=== PATIENT | male | born 1985 | race Caucasian/White ===

== ENCOUNTER 2018-11-05 16:34 | Emergency (ER) | payer MEDICAID ==
[~2018-11-05] VITALS: Ht 177.8 cm; Wt 109.1 kg
[~2018-11-05 16:34] MED LIST: BUPR150T26; CEPH-571 PO; CLIN-96 PO; CYCL10TA25; HYDR-3972; HYDR-4383 PO; IBUP-1984 PO; LORA0.5T; TADA5TAB2
[2018-11-05 16:37] VITALS: BP 150/60
[2018-11-05] MEDS ORDERED: TETanus/Pertussis (Acell)/Diphther VAC/PF (Tdap-Adult) 0.5ml syringe IM ONE (16:45)
[2018-11-05] MEDS ORDERED: HYDROcodone/acetaminophen 5mg/325mg tablet PO ONE (16:45)
[2018-11-05] MEDS ORDERED: LIDOcaine 1% w/epiNEPHrine 1:200,000 30ml vial IM ONE (16:45)
[2018-11-05] MEDS ORDERED: silver nitrate applicator stick TP ONE (16:50)
[2018-11-05] MEDS ORDERED: HYDR-3965 PO (18:04)
== END 2018-11-05 18:14 | disposition home or self-care (01) ==
LOC: ER 16:35
DX: S61.303A Unspecified open wound of left middle finger with damage to nail, initial encounter (principal); G89.29 Other chronic pain; Z98.890 Other specified postprocedural states; Z88.0 Allergy status to penicillin; Z79.899 Other long term (current) drug therapy; W26.8XXA Contact with other sharp object(s), not elsewhere classified, initial encounter; Y93.89 Activity, other specified; Y92.89 Other specified places as the place of occurrence of the external cause; Y99.8 Other external cause status
CPT/HCPCS: 64450; 73140; 90471; 90715; 99284; J3490

== ENCOUNTER 2018-11-12 00:19 | Emergency (ER) | payer MEDICAID ==
[~2018-11-12] VITALS: Ht 177.8 cm; Wt 102.2 kg
[2018-11-12 00:29] VITALS: BP 157/129
[2018-11-12] MEDS ORDERED: CLIN150C2 PO (00:34)
== END 2018-11-12 00:48 | disposition home or self-care (01) ==
LOC: ER 00:20
DX: S61.210D Laceration without foreign body of right index finger without damage to nail, subsequent encounter (principal); G89.29 Other chronic pain; Z98.890 Other specified postprocedural states; Z88.0 Allergy status to penicillin; Z79.899 Other long term (current) drug therapy; W26.8XXD Contact with other sharp object(s), not elsewhere classified, subsequent encounter
CPT/HCPCS: 99283

== ENCOUNTER 2018-12-19 19:01 | Emergency (ER) | payer MEDICAID ==
[~2018-12-19] VITALS: Ht 175.3 cm; Wt 113.6 kg
[2018-12-19 19:36] LABS: BASOPHILS % (AUTO) 0.4 % (0-1); EOSINOPHILS # (AUTO) 0.1 X10'3 (0-0.9); EOSINOPHILS % (AUTO) 1.2 % (0-6); HEMATOCRIT 46.1 % (42.0-52.0); HEMOGLOBIN 15.9 g/dl (14.0-17.9); LYMPHOCYTES # (AUTO) 2.5 X10'3 (1.1-4.8); LYMPHOCYTES % (AUTO) 22.2 % (21-51); MEAN CORPUSCULAR HEMOGLOBIN 30.7 PG (27.0-31.0); MEAN CORPUSCULAR HGB CONC 34.4 g/dL (33.0-36.5); MEAN CORPUSCULAR VOLUME 89.4 FL (78-98); MEAN PLATELET VOLUME 7.6 FL (7.4-10.4); MONOCYTES # (AUTO) 0.5 X10'3 (0-0.9); MONOCYTES % (AUTO) 4.2 % (2-12); NEUTROPHILS # (AUTO) 8.1 X10'3 (1.8-7.7); PLATELET COUNT 304 X10'3 (140-440); RED BLOOD COUNT 5.16 X10'6 (4.70-6.10); RED CELL DISTRIBUTION WIDTH 13.2 % (11.5-14.5); WHITE BLOOD COUNT 11.3 X10'3 (4.5-11.0)
[2018-12-19 19:48] LABS: ALANINE AMINOTRANSFERASE 43 U/L (12-78); ALBUMIN 4.3 G/DL (3.4-5.0); ALBUMIN/GLOBULIN RATIO 1.2 (1.1-1.5); ALKALINE PHOSPHATASE 69 IU/L (46-116); ANION GAP 11 (8-16); ASPARTATE AMINO TRANSFERASE 17 U/L (10-37); BILIRUBIN,TOTAL 0.4 MG/DL (0.1-1.0); BLOOD UREA NITROGEN 8 MG/DL (7-18); BUN/CREATININE RATIO 7.8 (5.4-32.0); CALCIUM 8.7 MG/DL (8.5-10.1); CHLORIDE 104 MMOL/L (99-107); CREATININE 1.02 MG/DL (0.60-1.10); GLUCOSE 170 MG/DL (70-104); PARTIAL THROMBOPLASTIN TIME 28 SECONDS (22-32); POTASSIUM 3.7 MMOL/L (3.5-5.1); SODIUM 139 MMOL/L (135-145); TOTAL CARBON DIOXIDE 24.5 MMOL/L (24-32); TOTAL PROTEIN 7.8 G/DL (6.4-8.2); eGFR 85 ML/MIN
[2018-12-19 19:49] LABS: ETHANOL < 0.010 GM/DL (0.0-0.010)
[2018-12-19 21:02] LABS: URINE AMPHETAMINE SCREEN NEGATIVE (Neg); URINE BARBITUATE SCREEN NEGATIVE (Neg); URINE BENZODIAZEPINES SCREEN NEGATIVE (Neg); URINE CANNABINOID SCREEN NEGATIVE (Neg); URINE COCAINE SCREEN NEGATIVE (Neg); URINE METHADONE SCREEN NEGATIVE (Neg); URINE OPIATE SCREEN POSITIVE (Neg); URINE PHENCYCLIDINE SCREEN NEGATIVE (Neg)
[2018-12-19 21:48] VITALS: BP 134/99
[2018-12-19 22:13] LABS: CLARITY,URINE CLOUDY (Clear); COLOR,URINE YELLOW (Yellow); GLUCOSE, URINE NEGATIVE (Neg); KETONES,URINE NEGATIVE (Neg); LEUKOCYTE ESTERASE ,URINE NEGATIVE (Neg); NITRITES, URINE NEGATIVE (Neg); OCCULT BLOOD,URINE NEGATIVE (Neg); PH,URINE 5.5 (4.8-8.0); PROTEIN,URINE NEGATIVE (Neg); UROBILINOGEN,URINE 0.2 E.U/dL (0.2-1.0)
[2018-12-19 22:15] LABS: UA COLLECTION TYPE CLN CATCH MIDSTREAM
[2018-12-19 22:19] LABS: AMORPHOUS URATES 3+; BACTERIA,URINE NONE SEEN /HPF (Neg); MUCUS STRANDS NONE SEEN /LPF (Neg); RBC,URINE NONE SEEN /HPF (0-2); SQUAMOUS EPITHELIAL CELL,UR FEW /LPF (FEW); WBC,URINE NONE SEEN /HPF (0-4)
== END 2018-12-20 00:48 | disposition home or self-care (01) ==
LOC: ER 19:01
DX: R55 Syncope and collapse (principal); I10 Essential (primary) hypertension; G89.29 Other chronic pain; Z98.890 Other specified postprocedural states; Z88.0 Allergy status to penicillin; Z79.899 Other long term (current) drug therapy
CPT/HCPCS: 36415; 70450; 71045; 80053; 80305; 80320; 81001; 84484; 85025; 85610; 85730; 93005; 99284

== ENCOUNTER 2019-04-04 20:30 | Emergency (ER) | payer MEDICAID ==
[~2019-04-04] VITALS: Ht 175.3 cm; Wt 121.4 kg
[2019-04-04 20:30] VITALS: BP 142/99
[~2019-04-04 20:30] MED LIST changes: -BUPR150T26; -CEPH-571 PO; -CLIN-96 PO; -HYDR-4383 PO; -IBUP-1984 PO; -LORA0.5T; -TADA5TAB2
== END 2019-04-04 22:28 | disposition home or self-care (01) ==
LOC: ER 20:30
DX: J02.9 Acute pharyngitis, unspecified (principal); G89.29 Other chronic pain; Z98.890 Other specified postprocedural states; Z88.0 Allergy status to penicillin; Z79.899 Other long term (current) drug therapy
CPT/HCPCS: 87081; 87880; 99283

== ENCOUNTER 2019-04-07 20:05 | Emergency (ER) | payer MEDICAID ==
[~2019-04-07] VITALS: Ht 175.3 cm; Wt 121.0 kg
[2019-04-07 20:09] VITALS: BP 148/92
[2019-04-07] MEDS ORDERED: azithromycin 250mg tablet PO ONE (20:35)
[2019-04-07] MEDS ORDERED: CefTRIAXone 1000mg IM Kit (w/lidocaine diluent) IM ONE (20:35)
[2019-04-07] MEDS ORDERED: CefTRIAXone 250MG IM Kit w/LIDOcaine IM ONE (20:40)
[2019-04-07 21:17] LABS: CLARITY,URINE CLEAR (Clear); COLOR,URINE YELLOW (Yellow); GLUCOSE, URINE NEGATIVE (Neg); KETONES,URINE NEGATIVE (Neg); LEUKOCYTE ESTERASE ,URINE NEGATIVE (Neg); NITRITES, URINE NEGATIVE (Neg); OCCULT BLOOD,URINE NEGATIVE (Neg); PH,URINE 6.5 (4.8-8.0); PROTEIN,URINE NEGATIVE (Neg); UROBILINOGEN,URINE 0.2 E.U/dL (0.2-1.0)
[2019-04-07 21:21] LABS: UA COLLECTION TYPE VOIDED
== END 2019-04-07 23:04 | disposition home or self-care (01) ==
LOC: ER 20:05
DX: K40.90 Unilateral inguinal hernia, without obstruction or gangrene, not specified as recurrent (principal); G89.29 Other chronic pain; F17.210 Nicotine dependence, cigarettes, uncomplicated; Z98.890 Other specified postprocedural states; Z88.1 Allergy status to other antibiotic agents; Z88.0 Allergy status to penicillin
CPT/HCPCS: 36415; 74176; 81003; 87491; 87591; 96372; 99284; J0696

== ENCOUNTER 2019-06-14 10:23 | Inpatient (IN) | payer MEDICAID ==
[~2019-06-14] VITALS: Ht 175.3 cm; Wt 122.5 kg
[2019-06-14] MEDS ORDERED: normal saline 1000ML IV soln IVB ONE ×2 (10:40→14:15)
[2019-06-14] MEDS ORDERED: ketorolac trometh. 30mg/ml inj. IV ONE (10:40)
[2019-06-14] MEDS ORDERED: ondansetron/PF 4mg/2ml inj IV ONE (10:40)
[2019-06-14] MEDS: morphine 4 MG/ML inj SYRINge IV PRN ×2 (10:55→11:18)
[2019-06-14 11:13] LABS: BASOPHILS % (AUTO) 0.2 % (0-1); EOSINOPHILS # (AUTO) 0.1 X10'3 (0-0.9); EOSINOPHILS % (AUTO) 0.8 % (0-6); HEMATOCRIT 45.2 % (42.0-52.0); HEMOGLOBIN 15.7 g/dl (14.0-17.9); LYMPHOCYTES # (AUTO) 1.6 X10'3 (1.1-4.8); MEAN CORPUSCULAR HEMOGLOBIN 31.1 PG (27.0-31.0); MEAN CORPUSCULAR HGB CONC 34.8 g/dL (33.0-36.5); MEAN CORPUSCULAR VOLUME 89.4 FL (78-98); MEAN PLATELET VOLUME 7.4 FL (7.4-10.4); MONOCYTES # (AUTO) 0.8 X10'3 (0-0.9); MONOCYTES % (AUTO) 6.1 % (2-12); NEUTROPHILS % (AUTO) 80.9 % (42-75); PLATELET COUNT 306 X10'3 (140-440); RED BLOOD COUNT 5.06 X10'6 (4.70-6.10); RED CELL DISTRIBUTION WIDTH 13.5 % (11.5-14.5); WHITE BLOOD COUNT 13.5 X10'3 (4.5-11.0)
--- NOTE | 2019-06-14 11:22 | NUR ---
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
[2019-06-14 11:26] LABS: ALANINE AMINOTRANSFERASE 34 U/L (12-78); ALBUMIN 4.3 G/DL (3.4-5.0); ALBUMIN/GLOBULIN RATIO 1.2 (1.1-1.5); ALKALINE PHOSPHATASE 72 IU/L (46-116); ANION GAP 7 (8-16); ASPARTATE AMINO TRANSFERASE 20 U/L (10-37); BILIRUBIN,TOTAL 0.4 MG/DL (0.1-1.0); BLOOD UREA NITROGEN 12 MG/DL (7-18); CALCIUM 8.9 MG/DL (8.5-10.1); CHLORIDE 107 MMOL/L (99-107); GLUCOSE 111 MG/DL (70-104); LIPASE 123 U/L (73-393); POTASSIUM 3.9 MMOL/L (3.5-5.1); SODIUM 141 MMOL/L (135-145); TOTAL CARBON DIOXIDE 27.1 MMOL/L (24-32); TOTAL PROTEIN 7.8 G/DL (6.4-8.2); eGFR 86 ML/MIN
--- NOTE | 2019-06-14 11:51 | NUR ---
PT RETURNS FROM CT
[2019-06-14 12:30] LABS: CLARITY,URINE SLIGHTLY CLOUDY (Clear); COLOR,URINE YELLOW (Yellow); GLUCOSE, URINE NEGATIVE (Neg); KETONES,URINE NEGATIVE (Neg); LEUKOCYTE ESTERASE ,URINE NEGATIVE (Neg); NITRITES, URINE NEGATIVE (Neg); OCCULT BLOOD,URINE LARGE (Neg); PROTEIN,URINE 30 mg/dl (Neg); UROBILINOGEN,URINE 0.2 E.U/dL (0.2-1.0)
[2019-06-14 12:32] LABS: UA COLLECTION TYPE URINAL
[2019-06-14 12:37] LABS: BACTERIA,URINE FEW /HPF (Neg); MUCUS STRANDS MANY /LPF (Neg); SQUAMOUS EPITHELIAL CELL,UR FEW /LPF (FEW)
[2019-06-14 12:38] LABS: RBC,URINE TNTC /HPF (0-2)
[2019-06-14] MEDS ORDERED: HYDROcodone/acetaminophen 10/325mg tab PO ONE (12:45)
[2019-06-14] MEDS ORDERED: IBUP-1984 PO (12:48)
[2019-06-14] MEDS ORDERED: ONDA4TAB6 PO (12:48)
[2019-06-14] MEDS ORDERED: HYDR-4353 PO (12:48)
[2019-06-14] MEDS ORDERED: HYDROmorphone 1 mg/ml syringe IV ONE (14:15)
[2019-06-14] MEDS ORDERED: VALA500T41 PO (14:35)
[2019-06-14] MEDS ORDERED: acetaminophen 325mg tablet PO PRN (14:40)
[2019-06-14] MEDS ORDERED: HYDROmorphone inj. 0.5 MG/0.5 ML DISP.SYRIN IV PRN (14:40)
[2019-06-14] MEDS ORDERED: ondansetron/PF 4mg/2ml inj IV PRN (14:40)
[2019-06-14] MEDS ORDERED: mag hydrox/Alum hydrox/simeth 30ml oral suspension PO PRN (14:40)
[2019-06-14] MEDS ORDERED: nicotine 14mg patch - 24hr TD ONE (16:50)
[2019-06-14] MEDS: normal saline 1000ml 1,000 ML IV SCH (17:08)
--- NOTE | 2019-06-14 17:14 | NUR ---
Received patient to room 358b. Patient is alert and oriented x4. Oriented patient to room and call light placed within reach. Patient given non skid socks however he refuses to put them on. Educated patient fall precautions and safety. Patient continues to refuse. Significant other at beside. Educated patient urine output will be strained with filter.
[2019-06-14 17:25] VITALS: BP 136/82
[2019-06-14] MEDS: HYDROmorphone 1 mg/ml syringe IV PRN ×2 (17:40→21:39)
--- NOTE | 2019-06-14 17:54 | NUR ---
Unable to complete physical assessment as patient reports he is in extreme pain. Patient administered 1mg dilaudid as ordered but states is ineffective as he is doubled over in bed and guarding his right flank. He is unable to stay still and will stand up and then get back in bed and be doubled over, changing positions frequently. Dr Medel notified.
[2019-06-14 18:00] VITALS: BP 148/97
[2019-06-14] MEDS: ketorolac trometh. 30mg/ml inj. IV PRN (18:18)
--- NOTE | 2019-06-14 18:20 | NUR ---
Problems reprioritized. Patient report given, questions answered & plan of care reviewed with ANJANA Desouza.
[2019-06-14] MEDS ORDERED: ketorolac trometh. 30mg/ml inj. IV SCH (20:00)
[2019-06-14] MEDS ORDERED: normal saline 1000ml 1,000 ML IV ONE (20:00)
[2019-06-14] MEDS: magnesium hydroxide 30ml (MOM) UD suspension PO PRN (20:50)
[2019-06-14] MEDS: tamsulosin 0.4mg capsule PO SCH (20:50)
[2019-06-15] VITALS (19 sets, daily range): BP systolic 108–161; BP diastolic 56–96
[2019-06-15] MEDS: normal saline 1000ml 1,000 ML IV SCH ×3 (00:37→20:34)
--- NOTE | 2019-06-15 06:10 | NUR ---
Patient in room [facility]. I have received report from ANJANA MONTEIRO and had the opportunity to ask questions and assume patient care.
[2019-06-15 06:33] LABS: BASOPHILS % (AUTO) 0.5 % (0-1); EOSINOPHILS # (AUTO) 0.2 X10'3 (0-0.9); EOSINOPHILS % (AUTO) 1.8 % (0-6); HEMATOCRIT 38.7 % (42.0-52.0); HEMOGLOBIN 13.2 g/dl (14.0-17.9); LYMPHOCYTES # (AUTO) 2.2 X10'3 (1.1-4.8); LYMPHOCYTES % (AUTO) 23.4 % (21-51); MEAN CORPUSCULAR HEMOGLOBIN 30.6 PG (27.0-31.0); MEAN CORPUSCULAR HGB CONC 34.2 g/dL (33.0-36.5); MEAN CORPUSCULAR VOLUME 89.5 FL (78-98); MEAN PLATELET VOLUME 7.4 FL (7.4-10.4); MONOCYTES # (AUTO) 0.9 X10'3 (0-0.9); MONOCYTES % (AUTO) 9.8 % (2-12); NEUTROPHILS # (AUTO) 6.1 X10'3 (1.8-7.7); NEUTROPHILS % (AUTO) 64.5 % (42-75); PLATELET COUNT 249 X10'3 (140-440); RED BLOOD COUNT 4.32 X10'6 (4.70-6.10); RED CELL DISTRIBUTION WIDTH 13.2 % (11.5-14.5); WHITE BLOOD COUNT 9.5 X10'3 (4.5-11.0)
[2019-06-15 06:40] LABS: ALBUMIN 3.3 G/DL (3.4-5.0); ANION GAP 6 (8-16); BLOOD UREA NITROGEN 9 MG/DL (7-18); BUN/CREATININE RATIO 9.9 (5.4-32.0); CALCIUM 7.8 MG/DL (8.5-10.1); CHLORIDE 110 MMOL/L (99-107); CREATININE 0.91 MG/DL (0.60-1.10); GLUCOSE 97 MG/DL (70-104); POTASSIUM 3.9 MMOL/L (3.5-5.1); SODIUM 143 MMOL/L (135-145); TOTAL CARBON DIOXIDE 27.4 MMOL/L (24-32); eGFR > 90 ML/MIN
[2019-06-15] MEDS: valacyclovir 500mg tablet PO SCH (09:02)
[2019-06-15] MEDS: nicotine 14mg patch - 24hr TD SCH (09:03)
[2019-06-15] MEDS: HYDROmorphone 1 mg/ml syringe IV PRN (13:21)
[2019-06-15] MEDS: ketorolac trometh. 30mg/ml inj. IV PRN (15:24)
[2019-06-15] MEDS: HYDROmorphone/NS 1 mg/ml CADD 50 ML IV SCH ×4 (17:00→23:00)
[2019-06-15] MEDS ORDERED: ringers solution, lacted 1,000 ML IV SCH (17:21)
[2019-06-15] MEDS ORDERED: ondansetron/PF 4mg/2ml inj IV PRN (17:25)
[2019-06-15] MEDS ORDERED: hydrALAZINE 20mg/ml inj. IV PRN (17:25)
[2019-06-15] MEDS ORDERED: labetalol 20mg/4ml (5mg/ml) syringe IV PRN (17:25)
[2019-06-15] MEDS ORDERED: fentaNYL/PF 50MCG/1 ML 2ML syringe IV PRN ×2 (17:25)
[2019-06-15] MEDS ORDERED: morphine 4 MG/ML inj SYRINge IV PRN (17:25)
[2019-06-15] MEDS ORDERED: morphine 2 MG/ML inj. syringe IV PRN (17:25)
[2019-06-15] MEDS ORDERED: iohexol 300 MG/1 ML 50ml polymer ONE (17:33)
[2019-06-15] MEDS ORDERED: dexamethasone sod phosphate 10mg/ml inj ONE (17:51)
[2019-06-15] MEDS ORDERED: sevoflurane 250ml liquid IH ONE (17:51)
[2019-06-15] MEDS ORDERED: ondansetron/PF 4mg/2ml inj ONE (17:58)
[2019-06-15] MEDS ORDERED: levoFLOXACIN-Levaquin 500mg/D5 100 ML IV ONE (18:00)
[2019-06-15] MEDS ORDERED: propofol inj 20 ML IV ONE (18:18)
[2019-06-15] MEDS ORDERED: LIDOcaine 2% (20mg/ml) 5ml vial ONE (18:18)
--- NOTE | 2019-06-15 18:25 | NUR ---
Problems reprioritized. Patient report given, questions answered & plan of care reviewed with ANJANA VALDEZ.
--- NOTE | 2019-06-15 18:25 | NUR ---
Received from OR via surgical bed, accompanied by Anesthesiologist Will and report given by Anesthesiolgist. Pt VS WNL mask to 10L and sats 98% or greater. SCDs on, no barnes cath, no surgical site or dressing. 20G right forearm LR IVF 100cc/hr.
--- NOTE | 2019-06-15 18:31 | NUR ---
Patient in room [facility]. I have received report from Angeline YEUNG and had the opportunity to ask questions and assume patient care. Patient is currently in OR getting stents placement.
--- NOTE | 2019-06-15 20:05 | NUR ---
Report called to receiving nurse. Transferred via surgical bed. Belongings remain in patient's room. Special Issues communicated to receiving nurse Prudence RN during report, she is at bedside to receive patient. Pain is decreasing with the Dilaudid CADD. I relayed to RN that Dr Rosa called prior to transfer and she was informed about bloody urine, which she states is to be expected with his surgery but also that she had to dilate the urethra and therefore to expect even more blood than usual. I relayed her message to drink lots of fluids through the night. BLL call light within reach, chart at bedside, girlfriend at bedside. Post op VS stable.
--- NOTE | 2019-06-15 20:05 | NUR ---
Thiago VIGIL hung earlier and bolus dose given to help decrease pain, Sunday YEUNG witnessed.
[2019-06-15] MEDS: levoFLOXACIN-Levaquin 500mg/D5 100 ML IV SCH (20:33)
[2019-06-15] MEDS: tamsulosin 0.4mg capsule PO SCH (21:00)
[2019-06-15] MEDS: magnesium hydroxide 30ml (MOM) UD suspension PO PRN (22:57)
[2019-06-16 00:06] VITALS: BP 127/88
[2019-06-16 00:15] VITALS: BP 130/87
[2019-06-16] MEDS: HYDROmorphone/NS 1 mg/ml CADD 50 ML IV SCH ×4 (01:00→07:00)
[2019-06-16] MEDS: normal saline 1000ml 1,000 ML IV SCH ×2 (06:00→16:15)
--- NOTE | 2019-06-16 06:28 | NUR ---
Problems reprioritized. Patient report given, questions answered & plan of care reviewed with Mell YEUNG.
[2019-06-16 06:37] LABS: BASOPHILS % (AUTO) 0.1 % (0-1); EOSINOPHILS % (AUTO) 0 % (0-6); HEMATOCRIT 39.3 % (42.0-52.0); HEMOGLOBIN 13.8 g/dl (14.0-17.9); LYMPHOCYTES # (AUTO) 1.1 X10'3 (1.1-4.8); LYMPHOCYTES % (AUTO) 9.8 % (21-51); MEAN CORPUSCULAR HEMOGLOBIN 31.4 PG (27.0-31.0); MEAN CORPUSCULAR VOLUME 89.6 FL (78-98); MEAN PLATELET VOLUME 7.4 FL (7.4-10.4); MONOCYTES # (AUTO) 0.6 X10'3 (0-0.9); NEUTROPHILS % (AUTO) 84.1 % (42-75); PLATELET COUNT 275 X10'3 (140-440); RED BLOOD COUNT 4.38 X10'6 (4.70-6.10); RED CELL DISTRIBUTION WIDTH 13.1 % (11.5-14.5); WHITE BLOOD COUNT 10.7 X10'3 (4.5-11.0)
[2019-06-16 06:48] LABS: ALBUMIN 3.6 G/DL (3.4-5.0); ANION GAP 8 (8-16); BLOOD UREA NITROGEN 8 MG/DL (7-18); BUN/CREATININE RATIO 10.7 (5.4-32.0); CALCIUM 8.8 MG/DL (8.5-10.1); CHLORIDE 107 MMOL/L (99-107); CREATININE 0.75 MG/DL (0.60-1.10); GLUCOSE 121 MG/DL (70-104); POTASSIUM 4.4 MMOL/L (3.5-5.1); SODIUM 138 MMOL/L (135-145); TOTAL CARBON DIOXIDE 23.4 MMOL/L (24-32); eGFR > 90 ML/MIN
--- NOTE | 2019-06-16 06:58 | NUR ---
Patient in room [facility]. I have received report from ANJANA Weller and had the opportunity to ask questions and assume patient care.
[2019-06-16 08:05] VITALS: BP 124/83
[2019-06-16] MEDS: docusate sod 100mg capsule PO SCH ×2 (08:29→20:24)
[2019-06-16] MEDS: valacyclovir 500mg tablet PO SCH (08:29)
[2019-06-16] MEDS: levoFLOXACIN-Levaquin 500mg/D5 100 ML IV SCH (08:29)
[2019-06-16] MEDS: nicotine 14mg patch - 24hr TD SCH (08:30)
[2019-06-16] MEDS: levoFLOXACIN 500mg tablet PO SCH (11:09)
[2019-06-16] MEDS ORDERED: HYDROmorphone inj. 0.5 MG/0.5 ML DISP.SYRIN IV PRN (11:15)
[2019-06-16] MEDS ORDERED: magnesium citrate 296ml oral solution PO ONE (11:20)
[2019-06-16] MEDS ORDERED: methylnaltrexone br 12mg/0.6ml inj***SubQ only SQ SCH (11:23)
[2019-06-16] MEDS: oxybutynin 5mg tablet PO SCH ×2 (12:59→20:24)
[2019-06-16] MEDS: phenazopyridine 100mg tablet PO SCH ×2 (12:59→20:23)
[2019-06-16] MEDS: HYDROmorphone 1 mg/ml syringe IV PRN ×2 (12:59→20:25)
[2019-06-16] MEDS ORDERED: CADD PCA waste documentation MC SCH (13:15)
[2019-06-16] MEDS: HYDROcodone/acetaminophen 10/325mg tab PO PRN (15:22)
[2019-06-16 18:00] VITALS: BP 125/80
--- NOTE | 2019-06-16 19:30 | NUR ---
Patient in room [facility]. I have received report from Nichelle YEUNG and had the opportunity to ask questions and assume patient care.
[2019-06-16] MEDS: tamsulosin 0.4mg capsule PO SCH (20:23)
[2019-06-17] VITALS: BP 123/82
[2019-06-17] MEDS: normal saline 1000ml 1,000 ML IV SCH ×2 (02:37→08:35)
--- NOTE | 2019-06-17 06:14 | NUR ---
Problems reprioritized. Patient report given, questions answered & plan of care reviewed with Nichelle Bianchi.
[2019-06-17 06:24] LABS: BASOPHILS % (AUTO) 0.5 % (0-1); EOSINOPHILS # (AUTO) 0.2 X10'3 (0-0.9); EOSINOPHILS % (AUTO) 2.5 % (0-6); HEMATOCRIT 37.2 % (42.0-52.0); HEMOGLOBIN 13.1 g/dl (14.0-17.9); LYMPHOCYTES # (AUTO) 3.2 X10'3 (1.1-4.8); LYMPHOCYTES % (AUTO) 40.3 % (21-51); MEAN CORPUSCULAR HEMOGLOBIN 31.8 PG (27.0-31.0); MEAN CORPUSCULAR HGB CONC 35.4 g/dL (33.0-36.5); MEAN CORPUSCULAR VOLUME 89.9 FL (78-98); MEAN PLATELET VOLUME 7.6 FL (7.4-10.4); MONOCYTES # (AUTO) 0.7 X10'3 (0-0.9); MONOCYTES % (AUTO) 8.6 % (2-12); NEUTROPHILS # (AUTO) 3.8 X10'3 (1.8-7.7); NEUTROPHILS % (AUTO) 48.1 % (42-75); PLATELET COUNT 246 X10'3 (140-440); RED BLOOD COUNT 4.13 X10'6 (4.70-6.10); RED CELL DISTRIBUTION WIDTH 13.1 % (11.5-14.5); WHITE BLOOD COUNT 7.9 X10'3 (4.5-11.0)
[2019-06-17 06:33] LABS: ALBUMIN 3.2 G/DL (3.4-5.0); ANION GAP 8 (8-16); BLOOD UREA NITROGEN 8 MG/DL (7-18); BUN/CREATININE RATIO 9.6 (5.4-32.0); CHLORIDE 110 MMOL/L (99-107); CREATININE 0.83 MG/DL (0.60-1.10); GLUCOSE 89 MG/DL (70-104); POTASSIUM 3.8 MMOL/L (3.5-5.1); SODIUM 144 MMOL/L (135-145); TOTAL CARBON DIOXIDE 26.5 MMOL/L (24-32); eGFR > 90 ML/MIN
--- NOTE | 2019-06-17 06:35 | NUR ---
Patient in room [facility]. I have received report from ANJANA Herman and had the opportunity to ask questions and assume patient care. Pt sleeping at this time.
[2019-06-17 07:30] VITALS: BP 133/78
[2019-06-17] MEDS: oxybutynin 5mg tablet PO SCH ×2 (08:36→14:40)
[2019-06-17] MEDS: phenazopyridine 100mg tablet PO SCH ×2 (08:36→14:41)
[2019-06-17] MEDS: docusate sod 100mg capsule PO SCH (08:36)
[2019-06-17] MEDS: valacyclovir 500mg tablet PO SCH (08:36)
[2019-06-17] MEDS: nicotine 14mg patch - 24hr TD SCH (08:37)
[2019-06-17] MEDS: HYDROcodone/acetaminophen 10/325mg tab PO PRN ×2 (08:51→14:40)
[2019-06-17 11:30] VITALS: BP 111/82
[2019-06-17] MEDS: levoFLOXACIN 500mg tablet PO SCH (11:31)
[2019-06-17] MEDS ORDERED: tamsulosin capsule PO (14:57)
[2019-06-17] MEDS ORDERED: OXYB5TAB16 PO (14:57)
[2019-06-17] MEDS ORDERED: HYDR-3965 PO (14:57)
[2019-06-17] MEDS ORDERED: PHEN-786 PO (14:57)
[2019-06-17] MEDS ORDERED: LEVO500T89 PO (14:57)
--- NOTE | 2019-06-17 16:42 | NUR ---
Pt D/D'd Home by Dr Vidal. Pt on stable condition. pain med given prior discharge. IV removed. Discharge and medication instruction given to pt. Pt was escorted to front lobby on W/C. Left the hospital via private vehicle, accompanied by family member.
== END 2019-06-17 16:00 | disposition home or self-care (01) | DRG 465 ==
LOC: ER 10:23 → ED HOLD 14:37 → OBSVTOIN 14:37 → SUR 3N 16:41
PROVIDERS: ADMIT Family Medicine; ATTEND Hospitalist
PROC: BT1D1ZZ Fluoroscopy of Right Kidney, Ureter and Bladder using Low Osmolar Contrast (ICD-10-PCS; 2019-06-15)
PROC: 0T768DZ Dilation of Right Ureter with Intraluminal Device, Via Natural or Artificial Opening Endoscopic (ICD-10-PCS; principal; 2019-06-15 17:51)
DX: N13.2 Hydronephrosis with renal and ureteral calculous obstruction (principal); E66.9 Obesity, unspecified; F17.210 Nicotine dependence, cigarettes, uncomplicated; G89.29 Other chronic pain; K59.00 Constipation, unspecified; N45.3 Epididymo-orchitis; N35.911 Unspecified urethral stricture, male, meatal; M54.9 Dorsalgia, unspecified; Z68.39 Body mass index [BMI] 39.0-39.9, adult; Z88.0 Allergy status to penicillin; Z79.899 Other long term (current) drug therapy
CPT/HCPCS: 36415; 74176; 76000; 76775; 76870; 80048; 80053; 81001; 82948; 83690; 85025; 87081; 87088; 96374; 96375; 99285; A4618; C1758; C1769; C2617; G0378; J1100; J1170; J1885; J1956; J2001; J2212; J2270; J2405; J2704; J7030; J7120; Q9967

== ENCOUNTER → 2021-02-02 | Emergency (ER) | payer MEDICAID ==
[~2021-02-02] VITALS: Ht 177.8 cm; Wt 127.3 kg
[~2021-02-02] MED LIST changes: -CYCL10TA25; -HYDR-3972; +LEVO500T89 PO; +OXYB5TAB16 PO; +PHEN-786 PO; +SULF1TAB49 PO; +VALA500T41 PO; +tamsulosin capsule PO
[2021-02-03 03:52] VITALS: BP 138/68
--- NOTE | 2021-02-03 03:53 | NUR ---
PATIENT WAS SEEN BY MD IN [facility] ER WAS FULL. PT HAS BEEN EVALUATED AND DEEMED STABLE FOR DC BY MD RULING OUT ANY MEDICAL EMERGENCIES. RX ABX. UPON MY INITIAL ENCOUTER WITH PATIENT TO DISCHARGE HIM AND GET VITAL SIGNS, PT WAS REFUSING TO LEAVE SAYING HE WANTS FURTHER EVALUATION. 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 PT THEN GOT AGGRESSIVE AND REFUSED TO LEAVE. SECURITY INVOLVED UPON PT DC TO [facility].
== END | disposition home or self-care (01) ==
LOC: ER 23:26
DX: M79.672 Pain in left foot (principal); R22.42 Localized swelling, mass and lump, left lower limb; G89.29 Other chronic pain; Z98.890 Other specified postprocedural states; Z88.0 Allergy status to penicillin; Z79.2 Long term (current) use of antibiotics; Z79.899 Other long term (current) drug therapy
CPT/HCPCS: 99283

== ENCOUNTER 2022-05-21 01:55 | Emergency (ER) | payer BC, MEDICAID ==
[~2022-05-21] VITALS: Ht 176.5 cm; Wt 115.5 kg
[~2022-05-21 01:55] MED LIST changes: +LEVO-65 PO; -LEVO500T89 PO; -SULF1TAB49 PO
[2022-05-21] MEDS ORDERED: predniSONE 20 mg tablet PO ONE (05:05)
[2022-05-21 05:27] VITALS: BP 116/78
[2022-05-21] MEDS ORDERED: PRED20TA PO (05:35)
== END 2022-05-21 05:44 | disposition home or self-care (01) ==
LOC: ER 01:56
DX: R21 Rash and other nonspecific skin eruption (principal); G89.29 Other chronic pain; Z98.890 Other specified postprocedural states; Z88.0 Allergy status to penicillin; Z79.899 Other long term (current) drug therapy
CPT/HCPCS: 99283; J7512